=== PATIENT | male | born 2000 | race African-American/Black ===

== ENCOUNTER 2018-08-12 14:51 | Inpatient (IN) | payer MEDICAID ==
[~2018-08-12] VITALS: Ht 193 cm; Wt 77.1 kg
[2018-08-12] MEDS ORDERED: SODIUM CHLORIDE 0.9% 1,000 ML IV ONE (17:06)
[2018-08-12 18:01] LABS: CLARITY URINE CLEAR (CLEAR); COLOR URINE DARK YELLOW (YELLOW); KETONES URINE NEGATIVE (NEGATIVE); LEUKOCYTE ESTERASE URINE NEGATIVE (NEGATIVE); NITRITE URINE NEGATIVE (NEGATIVE); OCCULT BLOOD URINE NEGATIVE (NEGATIVE); PH URINE 6.5 (4.5-8.0); PROTEIN URINE NEGATIVE (NEGATIVE); SPECIFIC GRAVITY URINE 1.015 (1.005-1.030)
[2018-08-12 18:17] LABS: *AMPHETAMINES SCREEN URINE NEGATIVE (NEGATIVE); *BARBITURATES SCREEN URINE NEGATIVE (NEGATIVE); *BENZODIAZEPINES SCREEN URINE NEGATIVE (NEGATIVE); *COCAINE SCREEN URINE NEGATIVE (NEGATIVE); CANNABINOID URINE SCREEN PRESUMTIVE POSITIVE (NEGATIVE); PHENCYCLIDINE URINE SCREEN NEGATIVE (NEGATIVE)
[2018-08-12 18:18] LABS: METHADONE URINE SCREEN NEGATIVE (NEGATIVE); OPIATES URINE SCREEN NEGATIVE (NEGATIVE)
[2018-08-12 18:43] LABS: EOSINOPHILS % 1.4 % (0.0-5.0); LYMPHOCYTES % 24.3 % (20.0-50.0); MEAN CORPUSCULAR HEMOGLOBIN 30.3 pg (28.0-32.0); MEAN CORPUSCULAR VOLUME 95.3 fL (80.0-94.0); MEAN PLATELET VOLUME 8.6 fl (7.4-10.4); NEUTROPHILS % 68.3 % (40.0-76.0); PLATELET 489 x1000/uL (130-400); RED BLOOD CELL COUNT 2.11 mill/uL (4.7-6.1); RED CELL DISTRIBUTION WIDTH 24.5 % (11.6-14.6)
[2018-08-12] MEDS ORDERED: LORAZEPAM 2MG/ML CPJ IV ONE (18:45)
[2018-08-12 18:47] LABS: CHLORIDE 103 mEq/L (98-107); HEMATOCRIT. 20.1 % (42.0-52.0); HEMOGLOBIN. 6.4 g/dL (14.0-18.0)
[2018-08-12 18:50] LABS: INR 1.2; PARTIAL THROMBOPLASTIN TIME 48.5 sec (23.4-31.0); PROTHROMBIN TIME 12.1 sec (9.1-11.1)
[2018-08-12 18:51] LABS: ETHANOL BLOOD < 10 mg/dL
[2018-08-12 18:55] LABS: CREATINE KINASE 57 IU/L (39-308)
[2018-08-12 18:58] LABS: CREATINE KINASE MB FRACTION < 1.0 ng/mL (0.5-3.6)
[2018-08-12 18:59] LABS: PLATELET ESTIMATE INCREASED
[2018-08-12] MEDS ORDERED: MORPHINE SULFATE 4 MG/ML CPJ (NOT FOR IM USE) IV ONE (19:30)
[2018-08-12] MEDS ORDERED: DOCUSATE SODIUM 100MG CAPSULE PO PRN (20:00)
[2018-08-12] MEDS ORDERED: MAGNESIUM/ALUMINUM HYDROXIDE/SIMETHICONE 30ML UDC PO PRN (20:00)
[2018-08-12] MEDS ORDERED: TRAMADOL 50MG TABLET PO PRN (20:00)
[2018-08-12] MEDS ORDERED: CLONIDINE 0.1MG TABLET PO PRN (20:00)
[2018-08-12] MEDS ORDERED: IPRATROPIUM/ALBUTEROL 0.5-3(2.5)MG/3ML NEB INH PRN (20:00)
[2018-08-12] MEDS ORDERED: MORPHINE SULFATE 2 MG/ML CPJ (NOT FOR IM USE) IV PRN (20:00)
[2018-08-12] MEDS ORDERED: LORAZEPAM 1MG TABLET PO PRN (20:00)
[2018-08-12] MEDS ORDERED: GUAIFENESIN 200MG/10ML SUGAR FREE UDC PO PRN (20:00)
[2018-08-12] MEDS ORDERED: ZOLPIDEM TARTRATE 5MG TABLET PO PRN (20:00)
[2018-08-12] MEDS ORDERED: ONDANSETRON HCL 4MG/2ML INJ IV PRN (20:00)
[2018-08-12] MEDS ORDERED: NITROGLYCERIN 0.4MG TABLET SL SL PRN (20:00)
[2018-08-12] MEDS ORDERED: KETOROLAC 15MG/ML VIAL IV PRN (20:00)
[2018-08-12] MEDS ORDERED: ACETAMINOPHEN 325MG TABLET PO PRN (20:00)
[2018-08-12] MEDS ORDERED: DIPHENHYDRAMINE 50MG/ML VIAL IV PRN (20:00)
[2018-08-13 00:45] VITALS: BP 123/65
[2018-08-13] MEDS: SODIUM CHLORIDE 0.9% 1,000 ML IV SCH ×4 (01:44→22:00)
[2018-08-13] MEDS: MORPHINE SULFATE 4 MG/ML CPJ (NOT FOR IM USE) IV PRN ×2 (01:46→09:20)
[2018-08-13 02:00] VITALS: BP 123/65
[2018-08-13 04:00] VITALS: BP 101/57
[2018-08-13 08:00] VITALS: BP 101/60
[2018-08-13] MEDS ORDERED: FOLIC ACID/VITAMIN B COMP W-C TABLET PO SCH (09:00)
[2018-08-13] MEDS: FAMOTIDINE 20MG TABLET PO SCH ×2 (09:18→20:29)
[2018-08-13] MEDS: FOLIC ACID 1MG TABLET PO SCH (09:45)
[2018-08-13] MEDS ORDERED: HYDROCODONE/ACETAMINOPHEN 5/325MG TABLET PO PRN (17:45)
[2018-08-13 18:00] VITALS: BP 102/57
[2018-08-13 20:00] VITALS: BP 123/75
[2018-08-13] MEDS: HYDROMORPHONE HCL/PF 2MG/ML CPJ IV PRN (20:30)
[2018-08-14] VITALS (11 sets, daily range): BP systolic 115–124; BP diastolic 65–84
[2018-08-14] MEDS: HYDROMORPHONE HCL/PF 2MG/ML CPJ IV PRN ×4 (03:09→20:12)
[2018-08-14] MEDS: SODIUM CHLORIDE 0.9% 1,000 ML IV SCH ×3 (04:40→18:00)
[2018-08-14] MEDS: FOLIC ACID 1MG TABLET PO SCH (08:42)
[2018-08-14] MEDS: FAMOTIDINE 20MG TABLET PO SCH ×2 (08:42→20:12)
[2018-08-14 10:27] LABS: MEAN CORPUSCULAR HEMOGLOBIN 30.4 pg (28.0-32.0); MEAN CORPUSCULAR VOLUME 95.6 fL (80.0-94.0); MEAN PLATELET VOLUME 8.8 fl (7.4-10.4); PLATELET 529 x1000/uL (130-400); RED BLOOD CELL COUNT 2.14 mill/uL (4.7-6.1); RED CELL DISTRIBUTION WIDTH 25.2 % (11.6-14.6)
[2018-08-14 10:35] LABS: CHLORIDE 105 mEq/L (98-107)
[2018-08-14 10:38] LABS: HEMATOCRIT. 20.5 % (42.0-52.0); HEMOGLOBIN. 6.5 g/dL (14.0-18.0)
[2018-08-14 11:37] LABS: NUCLEATED RED BLOOD CELLS 152 /100 WBC; PLATELET ESTIMATE INCREASED
[2018-08-14 19:32] LABS: HEMATOCRIT 22.3 % (42.0-52.0); HEMOGLOBIN 7.4 g/dL (14.0-18.0)
[2018-08-15] MEDS: SODIUM CHLORIDE 0.9% 1,000 ML IV SCH ×2 (00:40→10:36)
[2018-08-15 03:37] VITALS: BP 129/62
[2018-08-15] MEDS: HYDROMORPHONE HCL/PF 2MG/ML CPJ IV PRN ×2 (03:45→10:37)
[2018-08-15 08:00] VITALS: BP 112/67
[2018-08-15] MEDS: FOLIC ACID 1MG TABLET PO SCH (10:25)
[2018-08-15] MEDS: FAMOTIDINE 20MG TABLET PO SCH (10:26)
[2018-08-15] MEDS ORDERED: FOLI-43 PO (11:36)
[2018-08-15] MEDS ORDERED: FAMO20TA8 PO (11:36)
[2018-08-15 13:14] VITALS: BP 112/67
== END 2018-08-15 13:30 | disposition home or self-care (01) | DRG 662 ==
LOC: ER 14:51 → EDBD 19:44 → 8WST 19:44 → EDBEDREQ 19:53 → ENRESERV 23:25
PROVIDERS: ADMIT Internal Medicine; ATTEND Internal Medicine
PROC: 30233N1 Transfusion of Nonautologous Red Blood Cells into Peripheral Vein, Percutaneous Approach (ICD-10-PCS; principal; 2018-08-14)
DX: D57.00 Hb-SS disease with crisis, unspecified (principal); E44.1 Mild protein-calorie malnutrition; R65.10 Systemic inflammatory response syndrome (SIRS) of non-infectious origin without acute organ dysfunction; E83.51 Hypocalcemia; F12.90 Cannabis use, unspecified, uncomplicated; Z68.20 Body mass index [BMI] 20.0-20.9, adult
CPT/HCPCS: 36415; 71045; 80305; 82550; 82553; 83615; 83880; 84484; 85014; 85018; 85044; 86850; 86870; 86900; 86920; 93005; 96374; 96375; 99285; G0482; J1170; J1885; J2060; J2270; J7030; J7040; P9016

== ENCOUNTER 2019-10-23 17:36 | Inpatient (IN) | payer MEDICAID ==
[~2019-10-23] VITALS: Ht 190.5 cm; Wt 68.6 kg
[~2019-10-23 17:36] MED LIST: FAMO20TA8 PO; FOLI-43 PO
[2019-10-23 18:50] LABS: BG BASE EXCESS 3.9 mmol/L (-2.0-2.0); BG DEOXYHEMOGLOBIN 8.2 % (0.0-5.0); BG FRACTION INSPIRED OXYGEN 21; BG OXYGEN SATURATION 91.3 % (92.0-98.5); BG OXYHEMOGLOBIN 85.8 % (94.0-97.0); BG PCO2 39.8 mmHg (35.0-45.0); BG PH 7.465 (7.350-7.450); BG PO2 62.8 mmHg (75.0-100.0); BG SAMPLE SITE RIGHT RADIAL; BG VENT MODE ROOM AIR
[2019-10-23 18:55] LABS: MEAN CORPUSCULAR VOLUME 106.5 fL (80.0-94.0); MEAN PLATELET VOLUME 9.2 fl (7.4-10.4); PLATELET 135 x1000/uL (130-400); RED BLOOD CELL COUNT 1.77 mill/uL (4.7-6.1); RED CELL DISTRIBUTION WIDTH 44.7 % (11.6-14.6)
[2019-10-23 19:01] LABS: INR 1.1; PROTHROMBIN TIME 12.2 sec (9.6-11.0)
[2019-10-23 19:12] LABS: HEMATOCRIT. 18.8 % (42.0-52.0)
[2019-10-23] MEDS ORDERED: SODIUM CHLORIDE 0.9% 1,000 ML IV ONE (19:16)
[2019-10-23 19:33] LABS: CLARITY URINE CLEAR (CLEAR); COLOR URINE DARK YELLOW (YELLOW); KETONES URINE NEGATIVE (NEGATIVE); LEUKOCYTE ESTERASE URINE NEGATIVE (NEGATIVE); NITRITE URINE NEGATIVE (NEGATIVE); OCCULT BLOOD URINE NEGATIVE (NEGATIVE); PH URINE 7.5 (4.5-8.0); PROTEIN URINE NEGATIVE (NEGATIVE)
[2019-10-23] MEDS ORDERED: PIPERACILLIN/TAZ 3.375G PREMIX 50 ML IV ONE (19:45)
[2019-10-23] MEDS ORDERED: FUROSEMIDE 20MG/2ML VIAL IVP ONE (19:45)
[2019-10-23] MEDS ORDERED: LEVOFLOXACIN 500MG PREMIX 100 ML IV ONE (19:45)
[2019-10-23] MEDS ORDERED: SODIUM CHLORIDE 0.9% 1000ML BAG (SEPSIS BOLUS) IV ONE (19:45)
[2019-10-23 19:48] LABS: *AMPHETAMINES SCREEN URINE NEGATIVE (NEGATIVE); *BARBITURATES SCREEN URINE NEGATIVE (NEGATIVE); *BENZODIAZEPINES SCREEN URINE NEGATIVE (NEGATIVE); *COCAINE SCREEN URINE NEGATIVE (NEGATIVE); METHADONE URINE SCREEN NEGATIVE (NEGATIVE); OPIATES URINE SCREEN NEGATIVE (NEGATIVE); PHENCYCLIDINE URINE SCREEN NEGATIVE (NEGATIVE)
[2019-10-23 19:48] LABS: NUCLEATED RED BLOOD CELLS 615 /100 WBC; PLATELET ESTIMATE NORMAL
[2019-10-23 19:49] LABS: CANNABINOID URINE SCREEN NEGATIVE (NEGATIVE)
[2019-10-23 19:57] LABS: TOTAL IRON BINDING CAPACITY 212 ug/dL (250-450)
[2019-10-23] MEDS ORDERED: MORPHINE SULFATE 10 MG/ML CPJ IV ONE (20:00)
[2019-10-23] MEDS ORDERED: HYDROCODONE/ACETAMINOPHEN 10/325MG TABLET PO PRN (20:00)
[2019-10-23] MEDS ORDERED: ACETAMINOPHEN 325MG TABLET PO PRN (20:00)
[2019-10-23] MEDS ORDERED: ONDANSETRON HCL 4MG/2ML INJ IV PRN (20:00)
[2019-10-23] MEDS ORDERED: ONDANSETRON HCL 4MG/2ML INJ IV ONE (20:00)
[2019-10-23 20:07] LABS: CHLORIDE 101 mEq/L (98-107)
[2019-10-23 20:11] LABS: ETHANOL BLOOD < 10 mg/dL
[2019-10-23 21:16] LABS: HEPATITIS B SURFACE ANTIGEN NEGATIVE
[2019-10-23 21:45] LABS: HEPATITIS A AB IGM NEGATIVE (NEGATIVE)
[2019-10-24] VITALS (33 sets, daily range): BP systolic 111–147; BP diastolic 59–108
[2019-10-24] MEDS ORDERED: PIPERACILLIN/TAZOBACTAM 3.375 G in DEXT 5% WATER 100 ML IV SCH (05:00)
[2019-10-24 05:36] LABS: MEAN CORPUSCULAR HEMOGLOBIN 33.8 pg (28.0-32.0); MEAN CORPUSCULAR VOLUME 107.3 fL (80.0-94.0); MEAN PLATELET VOLUME 9.6 fl (7.4-10.4); PLATELET 115 x1000/uL (130-400); RED BLOOD CELL COUNT 1.62 mill/uL (4.7-6.1); RED CELL DISTRIBUTION WIDTH 47.1 % (11.6-14.6)
[2019-10-24 05:41] LABS: CHLORIDE 100 mEq/L (98-107)
[2019-10-24 06:01] LABS: HEMATOCRIT. 17.4 % (42.0-52.0); HEMOGLOBIN. 5.5 g/dL (14.0-18.0)
[2019-10-24] MEDS: VANCOMYCIN 1,750 MG in DEXT 5% WATER 500 ML IV SCH ×3 (06:46→21:08)
[2019-10-24] MEDS ORDERED: POTASSIUM CHLORIDE INJ 60 MEQ in DEXT 5% WATER 500 ML IV SCH (08:00)
[2019-10-24] MEDS: FUROSEMIDE 40MG/4ML VIAL IVP SCH (08:17)
[2019-10-24] MEDS ORDERED: LORAZEPAM 2MG/ML CPJ IV PRN (10:15)
[2019-10-24] MEDS ORDERED: HALOPERIDOL LACTATE 5MG/ML VIAL IM PRN (10:15)
[2019-10-24] MEDS: HYDROMORPHONE HCL/PF 2MG/ML CPJ IV PRN ×2 (10:24→21:09)
[2019-10-24] MEDS ORDERED: MAGNESIUM 2 G PREMIX 50 ML IV NR (12:00)
[2019-10-24 12:58] LABS: NUCLEATED RED BLOOD CELLS 683 /100 WBC; PLATELET ESTIMATE DECREASED
[2019-10-24] MEDS: PIPERACILLIN/TAZOBACTAM 3.375 G in DEXT 5% WATER 100 ML IV SCH ×3 (13:10→23:30)
[2019-10-25] VITALS (16 sets, daily range): BP systolic 100–130; BP diastolic 54–85
[2019-10-25] MEDS: HYDROMORPHONE HCL/PF 2MG/ML CPJ IV PRN ×4 (04:25→20:50)
[2019-10-25] MEDS: VANCOMYCIN 1,750 MG in DEXT 5% WATER 500 ML IV SCH ×3 (05:09→21:40)
[2019-10-25] MEDS: PIPERACILLIN/TAZOBACTAM 3.375 G in DEXT 5% WATER 100 ML IV SCH ×3 (05:09→17:25)
[2019-10-25 06:36] LABS: CHLORIDE 99 mEq/L (98-107)
[2019-10-25 06:38] LABS: MEAN CORPUSCULAR HEMOGLOBIN 34.6 pg (28.0-32.0); MEAN CORPUSCULAR VOLUME 111.6 fL (80.0-94.0); MEAN PLATELET VOLUME 9.4 fl (7.4-10.4); PLATELET 115 x1000/uL (130-400); RED BLOOD CELL COUNT 1.74 mill/uL (4.7-6.1)
[2019-10-25 06:49] LABS: VANCOMYCIN TROUGH 18.1 ug/mL (5.0-10.0)
[2019-10-25 06:51] LABS: HEMATOCRIT. 19.4 % (42.0-52.0)
[2019-10-25] MEDS ORDERED: POTASSIUM CHLORIDE 20MEQ TABLET SR PO SCH (08:00)
[2019-10-25] MEDS: FUROSEMIDE 40MG/4ML VIAL IVP SCH (09:35)
[2019-10-25] MEDS: GUAIFENESIN-DM 200MG-20MG/10ML UDC PO PRN ×2 (12:12→22:30)
[2019-10-25 14:12] LABS: NUCLEATED RED BLOOD CELLS 759 /100 WBC
[2019-10-25 14:13] LABS: PLATELET ESTIMATE DECREASED
[2019-10-25] MEDS: HYDROXYUREA 500MG CAPSULE PO SCH (15:43)
[2019-10-25 17:03] LABS: HEMATOCRIT 22.2 % (42.0-52.0)
[2019-10-25 17:13] LABS: HEMOGLOBIN 6.8 g/dL (14.0-18.0)
[2019-10-25] MEDS: FOLIC ACID 1MG TABLET PO SCH (21:40)
[2019-10-26 00:58] LABS: HEMATOCRIT 22.8 % (42.0-52.0); HEMOGLOBIN 7.4 g/dL (14.0-18.0)
[2019-10-26] MEDS: HYDROMORPHONE HCL/PF 2MG/ML CPJ IV PRN ×7 (02:07→23:41)
[2019-10-26 03:57] LABS: HEMATOCRIT. 23.3 % (42.0-52.0); HEMOGLOBIN. 7.6 g/dL (14.0-18.0); MEAN CORPUSCULAR HEMOGLOBIN 34.3 pg (28.0-32.0); MEAN CORPUSCULAR VOLUME 105.1 fL (80.0-94.0); PLATELET 112 x1000/uL (130-400); RED BLOOD CELL COUNT 2.21 mill/uL (4.7-6.1); RED CELL DISTRIBUTION WIDTH 43.3 % (11.6-14.6)
[2019-10-26 04:00] VITALS: BP 121/78
[2019-10-26 04:15] LABS: CHLORIDE 98 mEq/L (98-107)
[2019-10-26 04:24] LABS: VANCOMYCIN TROUGH 18.2 ug/mL (5.0-10.0)
[2019-10-26] MEDS: VANCOMYCIN 1,750 MG in DEXT 5% WATER 500 ML IV SCH ×3 (05:56→20:18)
[2019-10-26] MEDS: PIPERACILLIN/TAZOBACTAM 3.375 G in DEXT 5% WATER 100 ML IV SCH ×6 (06:05→23:31)
[2019-10-26 07:57] VITALS: BP 102/59
[2019-10-26] MEDS: HYDROXYUREA 500MG CAPSULE PO SCH (09:13)
[2019-10-26] MEDS: GUAIFENESIN-DM 200MG-20MG/10ML UDC PO PRN ×2 (09:13→16:57)
[2019-10-26] MEDS: FOLIC ACID 1MG TABLET PO SCH (09:13)
[2019-10-26 09:53] LABS: PLATELET ESTIMATE DECREASED
[2019-10-26 09:59] LABS: NUCLEATED RED BLOOD CELLS 272 /100 WBC
[2019-10-26 12:07] VITALS: BP 107/62
[2019-10-26] MEDS ORDERED: OXYCODONE HCL/ACETAMINOPHEN 5/325MG TABLET PO PRN (12:30)
[2019-10-26 15:25] VITALS: BP 117/71
[2019-10-26] MEDS: SODIUM CHLORIDE 0.9% 1,000 ML IV SCH (16:57)
[2019-10-26 20:23] VITALS: BP 98/51
[2019-10-27] VITALS (12 sets, daily range): BP systolic 103–126; BP diastolic 46–88
[2019-10-27] MEDS: GUAIFENESIN-DM 200MG-20MG/10ML UDC PO PRN ×2 (02:30→20:43)
[2019-10-27] MEDS: HYDROMORPHONE HCL/PF 2MG/ML CPJ IV PRN ×6 (02:31→21:00)
[2019-10-27] MEDS: PIPERACILLIN/TAZOBACTAM 3.375 G in DEXT 5% WATER 100 ML IV SCH ×3 (04:24→18:05)
[2019-10-27] MEDS: SODIUM CHLORIDE 0.9% 1,000 ML IV SCH ×2 (04:24→17:40)
[2019-10-27] MEDS: VANCOMYCIN 1,750 MG in DEXT 5% WATER 500 ML IV SCH ×3 (04:24→22:45)
[2019-10-27 05:50] LABS: HEMATOCRIT. 21.5 % (42.0-52.0); MEAN CORPUSCULAR HEMOGLOBIN 34.6 pg (28.0-32.0); MEAN CORPUSCULAR VOLUME 107.1 fL (80.0-94.0); MEAN PLATELET VOLUME 9.6 fl (7.4-10.4); PLATELET 99 x1000/uL (130-400); RED BLOOD CELL COUNT 2.01 mill/uL (4.7-6.1); RED CELL DISTRIBUTION WIDTH 43.3 % (11.6-14.6)
[2019-10-27 06:36] LABS: CHLORIDE 101 mEq/L (98-107)
[2019-10-27 09:02] LABS: NUCLEATED RED BLOOD CELLS 1077 /100 WBC
[2019-10-27 09:03] LABS: PLATELET ESTIMATE DECREASED
[2019-10-27] MEDS: HYDROXYUREA 500MG CAPSULE PO SCH (09:32)
[2019-10-27] MEDS: FOLIC ACID 1MG TABLET PO SCH (09:33)
[2019-10-27] MEDS: GUAIFENESIN 600MG ER TABLET PO SCH ×2 (11:54→20:43)
[2019-10-27] MEDS: FLUTICASONE PROPIONATE 50MCG/SPRAY BOTTLE BOTHNSTRLS SCH ×2 (13:12→20:43)
[2019-10-27] MEDS: IPRATROPIUM/ALBUTEROL 0.5-3(2.5)MG/3ML NEB HHN SCH (20:38)
[2019-10-28] VITALS (9 sets, daily range): BP systolic 99–113; BP diastolic 51–72
[2019-10-28] MEDS: HYDROMORPHONE HCL/PF 2MG/ML CPJ IV PRN ×7 (00:16→23:37)
[2019-10-28] MEDS: PIPERACILLIN/TAZOBACTAM 3.375 G in DEXT 5% WATER 100 ML IV SCH ×4 (01:42→18:23)
[2019-10-28] MEDS: GUAIFENESIN-DM 200MG-20MG/10ML UDC PO PRN ×2 (04:02→18:22)
[2019-10-28] MEDS: VANCOMYCIN 1,750 MG in DEXT 5% WATER 500 ML IV SCH ×3 (05:20→22:31)
[2019-10-28] MEDS: SODIUM CHLORIDE 0.9% 1,000 ML IV SCH (06:01)
[2019-10-28 06:16] LABS: CHLORIDE 98 mEq/L (98-107)
[2019-10-28 06:38] LABS: HEMATOCRIT. 22.9 % (42.0-52.0); HEMOGLOBIN. 7.5 g/dL (14.0-18.0); MEAN CORPUSCULAR VOLUME 103.8 fL (80.0-94.0); MEAN PLATELET VOLUME 10.2 fl (7.4-10.4); PLATELET 104 x1000/uL (130-400); RED CELL DISTRIBUTION WIDTH 37.6 % (11.6-14.6)
[2019-10-28] MEDS: GUAIFENESIN 600MG ER TABLET PO SCH ×2 (08:45→21:02)
[2019-10-28] MEDS: FLUTICASONE PROPIONATE 50MCG/SPRAY BOTTLE BOTHNSTRLS SCH ×2 (08:45→21:00)
[2019-10-28] MEDS: HYDROXYUREA 500MG CAPSULE PO SCH (08:46)
[2019-10-28] MEDS: FOLIC ACID 1MG TABLET PO SCH (08:46)
[2019-10-28] MEDS: IPRATROPIUM/ALBUTEROL 0.5-3(2.5)MG/3ML NEB HHN SCH ×2 (09:11→20:12)
[2019-10-28 11:44] LABS: ATYPICAL LYMPHOCYTES 2; NUCLEATED RED BLOOD CELLS 453 /100 WBC
[2019-10-28 11:48] LABS: PLATELET ESTIMATE DECREASED
[2019-10-28] MEDS: DOCUSATE SODIUM 250MG CAPSULE PO SCH (12:45)
[2019-10-28] MEDS: FUROSEMIDE 40MG/4ML VIAL IVP SCH (13:29)
[2019-10-29] MEDS: PIPERACILLIN/TAZOBACTAM 3.375 G in DEXT 5% WATER 100 ML IV SCH ×4 (00:41→17:16)
[2019-10-29] MEDS: GUAIFENESIN-DM 200MG-20MG/10ML UDC PO PRN ×3 (03:09→21:56)
[2019-10-29 04:00] VITALS: BP 99/51
[2019-10-29] MEDS: HYDROMORPHONE HCL/PF 2MG/ML CPJ IV PRN ×6 (04:06→20:46)
[2019-10-29 05:50] LABS: BASOPHILS % 0.5 % (0.0-2.0); EOSINOPHILS % 0.7 % (0.0-5.0); HEMATOCRIT. 23.1 % (42.0-52.0); HEMOGLOBIN. 7.5 g/dL (14.0-18.0); LYMPHOCYTES % 16.4 % (20.0-50.0); MEAN CORPUSCULAR HEMOGLOBIN 32.9 pg (28.0-32.0); MEAN CORPUSCULAR VOLUME 101.8 fL (80.0-94.0); MONOCYTES % 12.2 % (2.0-8.0); NEUTROPHILS % 70.2 % (40.0-76.0); PLATELET 156 x1000/uL (130-400); RED BLOOD CELL COUNT 2.27 mill/uL (4.7-6.1); RED CELL DISTRIBUTION WIDTH 35.5 % (11.6-14.6)
[2019-10-29 06:02] LABS: CHLORIDE 96 mEq/L (98-107)
[2019-10-29] MEDS: VANCOMYCIN 1,750 MG in DEXT 5% WATER 500 ML IV SCH (06:48)
[2019-10-29 08:00] VITALS: BP 112/67
[2019-10-29] MEDS: GUAIFENESIN 600MG ER TABLET PO SCH ×2 (09:05→21:30)
[2019-10-29] MEDS: HYDROXYUREA 500MG CAPSULE PO SCH (09:05)
[2019-10-29] MEDS: FOLIC ACID 1MG TABLET PO SCH (09:05)
[2019-10-29] MEDS: DOCUSATE SODIUM 250MG CAPSULE PO SCH (09:05)
[2019-10-29] MEDS: FUROSEMIDE 40MG/4ML VIAL IVP SCH (09:05)
[2019-10-29] MEDS: FLUTICASONE PROPIONATE 50MCG/SPRAY BOTTLE BOTHNSTRLS SCH ×2 (09:05→20:38)
[2019-10-29] MEDS: IPRATROPIUM/ALBUTEROL 0.5-3(2.5)MG/3ML NEB HHN SCH ×2 (09:15→22:04)
[2019-10-29 12:00] VITALS: BP 109/68
[2019-10-29 13:06] LABS: HGB A 21.4 % (96.4-98.8); HGB A2 4.5 % (1.8-3.2); HGB F 4.5 % (0.0-2.0); HGB S 69.6 % (0.0)
[2019-10-29] MEDS: VANCOMYCIN 1500MG in DEXTROSE 5% WATER 250ML IV SCH ×2 (13:33→21:30)
[2019-10-29 16:00] VITALS: BP 109/63
[2019-10-29 20:42] VITALS: BP 157/58
[2019-10-30 00:23] VITALS: BP 106/62
[2019-10-30] MEDS: HYDROMORPHONE HCL/PF 2MG/ML CPJ IV PRN ×6 (01:54→21:17)
[2019-10-30 04:00] VITALS: BP 103/65
[2019-10-30 06:36] LABS: CHLORIDE 97 mEq/L (98-107)
[2019-10-30] MEDS: GUAIFENESIN-DM 200MG-20MG/10ML UDC PO PRN ×2 (06:50→16:22)
[2019-10-30] MEDS: IPRATROPIUM/ALBUTEROL 0.5-3(2.5)MG/3ML NEB HHN SCH ×2 (08:15→21:53)
[2019-10-30] MEDS: FOLIC ACID 1MG TABLET PO SCH (08:29)
[2019-10-30] MEDS: FLUTICASONE PROPIONATE 50MCG/SPRAY BOTTLE BOTHNSTRLS SCH (08:29)
[2019-10-30] MEDS: FUROSEMIDE 40MG/4ML VIAL IVP SCH (08:29)
[2019-10-30] MEDS: GUAIFENESIN 600MG ER TABLET PO SCH ×2 (08:30→21:17)
[2019-10-30] MEDS: DOCUSATE SODIUM 250MG CAPSULE PO SCH (08:30)
[2019-10-30] MEDS: HYDROXYUREA 500MG CAPSULE PO SCH (08:30)
[2019-10-30 08:38] VITALS: BP 117/64
[2019-10-30 08:48] LABS: HEMATOCRIT. 22.3 % (42.0-52.0); HEMOGLOBIN. 7.1 g/dL (14.0-18.0); MEAN CORPUSCULAR HEMOGLOBIN 32.5 pg (28.0-32.0); MEAN CORPUSCULAR VOLUME 102.3 fL (80.0-94.0); MEAN PLATELET VOLUME 10.4 fl (7.4-10.4); PLATELET 224 x1000/uL (130-400); RED BLOOD CELL COUNT 2.18 mill/uL (4.7-6.1); RED CELL DISTRIBUTION WIDTH 34.2 % (11.6-14.6)
[2019-10-30 08:54] LABS: HEPATITIS B SURFACE ANTIGEN NEGATIVE
[2019-10-30 11:35] LABS: NUCLEATED RED BLOOD CELLS 239 /100 WBC
[2019-10-30 11:36] LABS: PLATELET ESTIMATE NORMAL
[2019-10-30 15:33] VITALS: BP 108/69
[2019-10-30] MEDS ORDERED: SODIUM CHLORIDE 10% FOR INH 15ML VIAL NEB INH NR (16:00)
[2019-10-30] MEDS: DOXYCYCLINE HYCLATE 100MG CAPSULE PO SCH (17:00)
[2019-10-30 20:00] VITALS: BP 122/80
[2019-10-30] MEDS: AMOXICILLIN/POTASSIUM CLAVULANATE 875/125MG TAB PO SCH (21:17)
[2019-10-30] MEDS ORDERED: IOHEXOL-350 100 ML BOTTLE ONE (22:35)
[2019-10-31] VITALS: BP 96/57
[2019-10-31 04:00] VITALS: BP 115/71
[2019-10-31] MEDS: HYDROMORPHONE HCL/PF 2MG/ML CPJ IV PRN ×3 (04:00→13:25)
[2019-10-31] MEDS: GUAIFENESIN-DM 200MG-20MG/10ML UDC PO PRN (04:33)
[2019-10-31 06:58] LABS: MEAN CORPUSCULAR HEMOGLOBIN 33.3 pg (28.0-32.0); MEAN CORPUSCULAR VOLUME 101.9 fL (80.0-94.0); MEAN PLATELET VOLUME 9.8 fl (7.4-10.4); PLATELET 243 x1000/uL (130-400); RED BLOOD CELL COUNT 1.96 mill/uL (4.7-6.1); RED CELL DISTRIBUTION WIDTH 34.8 % (11.6-14.6)
[2019-10-31 07:28] LABS: HEMOGLOBIN. 6.5 g/dL (14.0-18.0)
[2019-10-31 07:58] LABS: CHLORIDE 97 mEq/L (98-107)
[2019-10-31 08:00] VITALS: BP 118/67
[2019-10-31 08:31] VITALS: BP 118/67
[2019-10-31] MEDS: FUROSEMIDE 40MG/4ML VIAL IVP SCH (08:32)
[2019-10-31] MEDS: AMOXICILLIN/POTASSIUM CLAVULANATE 875/125MG TAB PO SCH (08:32)
[2019-10-31] MEDS: HYDROXYUREA 500MG CAPSULE PO SCH (08:32)
[2019-10-31] MEDS: GUAIFENESIN 600MG ER TABLET PO SCH (08:33)
[2019-10-31] MEDS: FOLIC ACID 1MG TABLET PO SCH (08:33)
[2019-10-31] MEDS: DOXYCYCLINE HYCLATE 100MG CAPSULE PO SCH (08:33)
[2019-10-31] MEDS: DOCUSATE SODIUM 250MG CAPSULE PO SCH (09:00)
[2019-10-31] MEDS ORDERED: OXYC-515 MT (09:05)
[2019-10-31] MEDS ORDERED: HYDR500C PO (09:05)
[2019-10-31] MEDS: IPRATROPIUM/ALBUTEROL 0.5-3(2.5)MG/3ML NEB HHN SCH (09:14)
[2019-10-31] MEDS ORDERED: MORP15TA54 MT (10:43)
[2019-10-31] MEDS ORDERED: BENZ-16 MT (10:44)
[2019-10-31 11:30] LABS: NUCLEATED RED BLOOD CELLS 232 /100 WBC; PLATELET ESTIMATE NORMAL
[2019-10-31 11:46] VITALS: BP 113/75
[2019-10-31 15:42] VITALS: BP 115/74
== END 2019-10-31 16:00 | disposition left against medical advice (07) | DRG 720 ==
LOC: ER 17:36 → MICUNO 19:49 → EDBEDREQTM 20:09 → EDBEDREQSVC 20:09 → EDBEDREQ 20:09 → ENRESERV 10-24 01:49 → 6WST 10-24 19:40 → 5WST 10-30 11:24
PROVIDERS: ADMIT Internal Medicine; ATTEND Internal Medicine
PROC: 30233N1 Transfusion of Nonautologous Red Blood Cells into Peripheral Vein, Percutaneous Approach (ICD-10-PCS; principal; 2019-10-25)
DX: A41.9 Sepsis, unspecified organism (principal); D65 Disseminated intravascular coagulation [defibrination syndrome]; J96.00 Acute respiratory failure, unspecified whether with hypoxia or hypercapnia; E43 Unspecified severe protein-calorie malnutrition; G93.40 Encephalopathy, unspecified; D57.00 Hb-SS disease with crisis, unspecified; I50.33 Acute on chronic diastolic (congestive) heart failure; K85.90 Acute pancreatitis without necrosis or infection, unspecified; J18.9 Pneumonia, unspecified organism; K76.0 Fatty (change of) liver, not elsewhere classified; E83.42 Hypomagnesemia; E83.51 Hypocalcemia; E87.5 Hyperkalemia; K75.9 Inflammatory liver disease, unspecified; I31.3 Pericardial effusion (noninflammatory); Z53.29 Procedure and treatment not carried out because of patient's decision for other reasons; E87.1 Hypo-osmolality and hyponatremia; E86.1 Hypovolemia; E11.65 Type 2 diabetes mellitus with hyperglycemia; Z87.891 Personal history of nicotine dependence; Z68.1 Body mass index [BMI] 19.9 or less, adult
CPT/HCPCS: 36415; 36600; 71045; 71250; 71275; 76705; 80048; 80053; 80076; 80202; 80305; 80320; 81003; 82010; 82140; 82248; 82375; 82805; 82962; 83021; 83036; 83540; 83550; 83605; 83735; 83880; 84145; 84484; 85014; 85018; 85025; 85044; 85049; 85660; 86705; 86709; 86803; 86850; 86860; 86870; 86880; 86886; 86900; 86901; 86902; 86920; 86931; 86970; 86971; 86976; 87340; 87804; 93005; 93306; 93970; 94640; 96365; 99291; J1170; J1940; J1956; J2060; J2270; J2405; J2543; J3370; J3475; J3480; J7030; J7060; J7131; P9016; Q9967; G0480